=== PATIENT | male | born 1955 | race Caucasian/White ===

== ENCOUNTER 2017-05-11 08:04 | Emergency (ER) | payer OTHER ==
[2017-05-11 08:10] VITALS: BP 171/87; PULSE 66; RESP 16; TEMP 97.4
--- NOTE | 2017-05-11 08:23 | ED ---
General Adult HPI - General Chief complaint: Fall Stated complaint: Fall Time Seen by Provider: 05/11/17 08:14 Source: patient, RN notes reviewed Mode of arrival: ambulatory Limitations: no limitations - History of Present Illness Initial comments: 61-year-old male who presents emergency room today with a chief complaint of a slip on the ice this morning. He states he was at work falling to the right side landing on the right shoulder and twisting the right knee and ankle. Patient states he has been able to ambulate does feel some discomfort the back of right ankle. States pain is worse with any movements of the right shoulder. He denies any head injury or loss conscious. Patient does admit to feeling some numbness to him down to the right hand. States he has full range motion of right shoulder right wrist and hand. Denies any other complaints or symptoms. Patient denies any recent fever, chills, shortness of breath, chest pain, back pain, abdominal pain, nausea or vomiting, headaches or visual changes , or any other complaints. - Related Data Previous Rx's Medication Instructions Recorded Ibuprofen [Motrin] 600 mg PO Q6HR PRN #30 day 05/11/17 Allergies Allergy/AdvReac Type Severity Reaction Status Date / Time No Known Allergies Allergy Verified 05/11/17 08:09 Review of Systems ROS Statement: Those systems with pertinent positive or pertinent negative responses have been documented in the HPI. ROS Other: All systems not noted in ROS Statement are negative. Past Medical History Past Medical History: Diabetes Mellitus, Hypertension, Prostate Disorder History of Any Multi-Drug Resistant Organisms: None Reported Additional Past Surgical History / Comment(s): cyst removal Past Psychological History: No Psychological Hx Reported Smoking Status: Never smoker Past Alcohol Use History: Occasional Past Drug Use History: None Reported General Exam - General Exam Comments Initial Comments: General: The patient is awake and alert, in no distress, and does not appear acutely ill. Neck: The neck is supple, there is no tenderness or JVD. Cardiovascular: There is a regular rate and rhythm. No murmur, rub or gallop is appreciated. Respiratory: Lungs are clear to auscultation, respirations are non-labored, breath sounds are equal. No wheezes, stridor, rales, or rhonchi. Musculoskeletal: Patient has normal appearance of her right ankle, right knee no obvious swelling or deformity. Patient has normal appearance of her shoulder. He shows limited range of motion with the right shoulder with extension and abduction. Patient sensations are intact globally tenderness onto the right elbow right hand where he shows full range of motion. Patient does have tenderness over the lateral and anterior aspects of the right proximal humerus. Patient has mild tenderness to the lateral posterior aspect of the right ankle. No tenderness over the medial malleolus. No tenderness down into the right foot. Sensations are intact with pulses equal bilaterally 2 + in all areas. Neurological: A&O x 3. CN II-XII intact, There are no obvious motor or sensory deficits. Coordination appears grossly intact. Speech is normal. Skin: Skin is warm and dry and no rashes or lesions are noted. Psychiatric: Normal mood and affect. Limitations: no limitations Course Vital Signs 05/11/17 08:07 Temperature 97.4 F L Pulse Rate 66 Respiratory 16 Rate Blood Pressure 171/87 O2 Sat by Pulse 98 Oximetry Medical Decision Making - Medical Decision Making Patient's x-rays reviewed and are negative for any acute fracture dislocation. Results were discussed with the patient. Patient is advised to follow-up with orthopedics if symptoms persist for further evaluation. Patient advised to return for new concerns use ice elevate the affected areas ibuprofen for pain. Disposition Clinical Impression: Fall, Ankle sprain, Knee sprain, Shoulder injury Disposition: HOME SELF-CARE Condition: Good Instructions: Rotator Cuff Injury (ED) Additional Instructions: Please use medication as discussed. Follow-up with employee health or orthopedics over the next 2 days if symptoms are not improving. Please return to emergency room if the symptoms increase or worsen or for any other concerns. Prescriptions: Ibuprofen [Motrin] 600 mg PO Q6HR PRN #30 day PRN Reason: Pain Referrals: Dex Sanchez MD [Primary Care Provider] - 1-2 days Clark Miller MD [Medical Doctor] - 1-2 days Time of Disposition: 09:01
--- NOTE | 2017-05-11 08:42 | XR ---
EXAMINATION TYPE: XR shoulder complete RT DATE OF EXAM: 05/11/2017 CLINICAL HISTORY: Pain after fall TECHNIQUE: Three views of the right shoulder are obtained. COMPARISON: None. FINDINGS: There is no acute fracture/dislocation evident in the right shoulder. The glenohumeral sebastián int space appears within normal limits. There is mild acromio clavicular arthropathy demonstrated as small marginal osteophytes. The visualized ribs are intact and unremarkable. IMPRESSION: There is no acute fracture or dislocation in the right shoulder.
--- NOTE | 2017-05-11 08:43 | XR ---
EXAMINATION TYPE: XR ankle complete RT DATE OF EXAM: 05/11/2017 CLINICAL HISTORY: Pain after a fall TECHNIQUE: Frontal, lateral and oblique images of the right ankle are obtained. COMPARISON: None. FINDINGS: There is no acute fracture/dislocation evident in the right ankle. The ankle mortise appe ars within normal limits. The overlying soft tissue appears unremarkable. Moderate Achilles and plan tar enthesophytes are present. IMPRESSION: There is no acute fracture or dislocation in the right ankle.
== END 2017-05-11 09:20 | disposition home or self-care (01) ==
LOC: EC 08:04
DX: S93.401A Sprain of unspecified ligament of right ankle, initial encounter (principal); S83.91XA Sprain of unspecified site of right knee, initial encounter; S49.91XA Unspecified injury of right shoulder and upper arm, initial encounter; W00.0XXA Fall on same level due to ice and snow, initial encounter; Y92.89 Other specified places as the place of occurrence of the external cause; Y99.0 Civilian activity done for income or pay
CPT/HCPCS: 99283

== ENCOUNTER → 2017-05-17 | Outpatient (CLI) | payer OTHER ==
--- NOTE | 2017-05-17 23:15 | MR ---
EXAMINATION TYPE: MR shoulder RT wo con DATE OF EXAM: 05/17/2017 COMPARISON: NONE HISTORY: Sprain of right shoulder joint TECHNIQUE: Multiplanar, multisequence imaging of the right shoulder is performed without contrast. FINDINGS: There is patchy abnormal increased signal in the supraspinatus tendon which has a somewhat wavy appea george. There is no subacromial impingement. There is a mild shoulder joint effusion. There is fluid a round the biceps tendon. Subscapularis tendon is intact. The glenoid pedro appear intact. There is sl ight narrowing of the shoulder joint space. There is no evidence of a fracture. I see no bony destruc tive process. There is mild spurring at the AC joint. There is only minimal subacromial impingement. IMPRESSION: Shoulder joint effusion. Mild osteoarthritic changes. There is at least partial tear of the supraspinatus tendon. There is no retraction.
== END | disposition home or self-care (01) ==
LOC: RADMRIMAIN 11:11
PROVIDERS: ATTEND Emergency Medicine
DX: M75.101 Unspecified rotator cuff tear or rupture of right shoulder, not specified as traumatic (principal); M19.011 Primary osteoarthritis, right shoulder

== ENCOUNTER → 2018-01-25 | Outpatient (CLI) | payer OTHER ==
--- NOTE | 2018-01-25 23:32 | MR ---
EXAMINATION TYPE: MR brain wo con DATE OF EXAM: 01/25/2018 COMPARISON: None HISTORY: Hearing loss, left ear Standard multiplanar, multisequence MRI departmental protocol Multiplanar, multisequence images of the brain were acquired. Diffusion weighted imaging was performe d. FINDINGS: There is mild cerebral cortical atrophy. There is no mass effect nor midline shift. There i s no sign of intracranial hemorrhage. There is no evidence of cortical infarct. There is minimal muco joseph thickening posterior left maxillary sinus. Brainstem is intact. Corpus callosum is intact. Sella turcica appears normal. Internal auditory canals are symmetric. There is no evidence of a mass. I see no bony destructive process. There is mild mucosal thickening right maxillary sinus. On the T2 and FLAIR images there are scattered multiple foci of increased signal at the barahona-white ma tter junction of both cerebral hemispheres. These measure up to 8 mm. Total number is approximately 2 0. I see no evidence of a bony destructive process. IMPRESSION: Mild maxillary sinusitis. White matter lesions are nonspecific and could relate to chronic small vessel ischemia or demyelinati ng disease. I do not see a cause for unilateral hearing loss.
== END | disposition home or self-care (01) ==
LOC: RADMRIMAIN 15:17
PROVIDERS: ATTEND Family Medicine
DX: J32.0 Chronic maxillary sinusitis (principal); R90.82 White matter disease, unspecified
CPT/HCPCS: 70551

== ENCOUNTER → 2021-11-03 | Outpatient (CLI) | payer OTHER ==
--- NOTE | 2021-11-03 16:13 | US ---
EXAMINATION TYPE: US duplex aorta DATE OF EXAM: 11/03/2021 COMPARISON: NONE CLINICAL HISTORY: Z13.6 ENCOUNTER FOR SCREENING FOR CARDIOVASCULAR D. screening EXAM MEASUREMENTS: Abdominal Aorta: Proximal: 2.1 x 2.0cm Mid: 1.6 x 1.6cm Distal: 2.2 x 1.7cm Bifurcation: RT: 0.9 x 1.0cm LT: 0.9 x 0.9cm no evidence of AAA at this time as visualized IMPRESSION: 1. Minimal prominence of the distal abdominal aorta in relation to the mid abdominal aorta without ev idence of aneurysmal dilatation.
== END | disposition home or self-care (01) ==
LOC: RADUSWWP 08:24
PROVIDERS: ATTEND Family Medicine
DX: Z13.6 Encounter for screening for cardiovascular disorders (principal)
CPT/HCPCS: 93979